=== PATIENT | male | born 1970 | race Caucasian/White ===

== ENCOUNTER 2020-10-19 17:28 | Emergency (ER) | payer BC ==
[2020-10-19] MEDS ORDERED: NA CHLORIDE 0.9% 1,000 ML ONE (18:02)
--- NOTE | 2020-10-19 22:47 | ER ---
Nurse's Notes [facility] Name: Norm Diez Age: 50 yrs Sex: Male : 1970 Arrival Date: 10/19/2020 Time: 17:29 Bed 6 Private MD: Diagnosis: Allergic Reaction Presentation: 10/19 17:35 Chief complaint: EMS states: Sudden onset severe itching on back and hives, followed by hb dizziness and SOB. On scene pt was hypotensive, diaphoretic, BP 60 palp. 20g R hand and 18g RAC. 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 Coronavirus screen: At this time, the client does not indicate any symptoms associated with coronavirus-19. Ebola Screen: No symptoms or risks identified at this time. Onset of symptoms was October 19, 2020. 17:35 Method Of Arrival: EMS: [facility] 17:35 Acuity: MARCO 2 hb 17:39 Initial Sepsis Screen: Does the patient meet any 2 criteria? No. Patient's initial hb sepsis screen is negative. Does the patient have a suspected source of infection? No. Patient's initial sepsis screen is negative. Risk Assessment: Do you want to hurt yourself or someone else? Patient reports no desire to harm self or others. Triage Assessment: 17:39 General: Appears in no apparent distress. Behavior is calm, cooperative. Pain: Denies hb pain. EENT: No deficits noted. No signs and/or symptoms were reported regarding the EENT system. Neuro: Level of Consciousness is awake, alert, obeys commands, Oriented to person, place, time, situation. Cardiovascular: Rhythm is regular. Respiratory: Respiratory effort is even, unlabored, Respiratory pattern is regular, symmetrical. GI: No signs and/or symptoms were reported involving the gastrointestinal system. : No signs and/or symptoms were reported regarding the genitourinary system. Derm: Skin is healthy with good turgor, Skin is clammy, Skin is pale. Musculoskeletal: No signs and/or symptoms reported regarding the musculoskeletal system. Historical: - Allergies: 17:39 No Known Allergies; hb - Immunization history:: Adult Immunizations up to date. - Social history:: Smoking status: Patient denies any tobacco usage or history of. Screenin:41 Abuse screen: Denies threats or abuse. Denies injuries from another. Nutritional hb screening: No deficits noted. Tuberculosis screening: No symptoms or risk factors identified. Fall Risk None identified. Assessment: 17:40 General: see triage . hb 18:26 Reassessment: Patient appears in no apparent distress at this time. Patient and/or hb family updated on plan of care and expected duration. Pain level reassessed. Patient is alert, oriented x 3, equal unlabored respirations, skin warm/dry/pink. 19:15 Reassessment: Patient appears in no apparent distress at this time. Patient and/or wh family updated on plan of care and expected duration. Pain level reassessed. Patient is alert, oriented x 3, equal unlabored respirations, skin warm/dry/pink. Updated on POC need to monitor for 6 hours until 2300 per Provider. 21:24 Reassessment: patient for observation for 6 hours. family informed. mg2 22:58 Reassessment: Patient appears in no apparent distress at this time. Patient and/or wh family updated on plan of care and expected duration. Pain level reassessed. Patient is alert, oriented x 3, equal unlabored respirations, skin warm/dry/pink. Vital Signs: 17:35 BP 118 / 70; Pulse 68; Resp 16; Temp 97.7; Pulse Ox 95% on R/A; Pain 0/10; hb 18:26 BP 118 / 64; Pulse 63; Resp 17; Pulse Ox 99% ; hb 20:15 BP 116 / 75; Pulse 68; Resp 18; Pulse Ox 100% on R/A; mg2 21:25 BP 117 / 72; Pulse 81; Resp 18; Pulse Ox 96% on R/A; wh 22:58 BP 119 / 81; Pulse 82; Resp 18; Pulse Ox 95% on R/A; wh ED Course: 17:29 Patient arrived in ED. ss 17:30 Justo Brock MD is Attending Physician. pkl 17:33 EKG done, by ED staff, reviewed by Douglas DOYLE. sv 17:34 Douglas [place] PA is PHCP. jmm 17:34 Justo Brock MD is Attending Physician. jmm 17:35 Radha Funes, RN is Primary Nurse. hb 17:38 Triage completed. hb 17:38 Arm band placed on. hb 17:41 Patient has correct armband on for positive identification. Bed in low position. Call hb light in reach. Side rails up X 1. quality assurance monitor body on. Pulse ox on. NIBP on. 17:41 Maintain EMS IV. Dressing intact. Good blood return noted. Site clean \T\ dry. Gauge \T\ hb site: 18g RAC, 20g L hand. 22:59 No provider procedures requiring assistance completed. IV discontinued, intact, wh bleeding controlled, No redness/swelling at site. Administered Medications: 17:46 Drug: NS 0.9% 1000 ml Route: IV; Rate: 1 bolus; Site: right antecubital; hb 21:23 Follow up: Response: No adverse reaction; IV Intake: 1000ml mg2 21:23 Not Given (Physician Discretion): Decadron - Dexamethasone 10 mg IVP once mg2 Intake: 21:23 IV: 1000ml; Total: 1000ml. mg2 Outcome: 22:47 Discharge ordered by . noam 23:00 Patient left the ED. wh Signatures: Winsome Noble, RN RN Justo Reid MD MD pkl Mickail, Joel, PA PA jmm Smirch, Shelby, RN RN ss Radha Funes RN RN Theodore James RN RN Sami Ruiz RN RN mg2 Corrections: (The following items were deleted from the chart) 17:41 17:35 Chief complaint: EMS states: Sudden onset severe itching on back and hives, hb followed by dizziness and SOB. On scene pt was hypotensive, diaphoretic, BP 60 palp. 20g R hand and 18g RAC. 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 hb
--- NOTE | 2020-10-19 22:47 | EDPHYS ---
Physician Documentation [facility] Name: Norm Diez Age: 50 yrs Sex: Male : 1970 Arrival Date: 10/19/2020 Time: 17:29 Bed 6 Private MD: ED Physician Justo Brock HPI: 10/19 17:30 This 50 yrs old Male presents to ER via EMS with complaints of Allergic jmm Reaction. 17:30 Onset: The symptoms/episode began/occurred acutely, just prior to arrival. Associated jmm signs and symptoms: Pertinent positives: hives, syncope. Possible causes: The patient has no known obvious cause for the symptoms. At home the patient or guardian has treated the symptoms with nothing. This is a 50 year old male with no known chronic medical conditions that presents to the ED after developing hives. Patient was hypotensive at home. Epinephrine was administered along with steroids. Patient currently has tremors but denies shortness of breath. . Historical: - Allergies: 17:39 No Known Allergies; hb - Immunization history:: Adult Immunizations up to date. - Social history:: Smoking status: Patient denies any tobacco usage or history of. ROS: 17:30 Constitutional: Negative for fever, chills, and weight loss, Cardiovascular: Negative jmm for chest pain, palpitations, and edema, Respiratory: Negative for shortness of breath, cough, wheezing, and pleuritic chest pain. 17:30 Allergy/Immunology: Positive for hives. 17:30 All other systems are negative. Exam: 17:30 Constitutional: This is a well developed, well nourished patient who is awake, alert, jmm and in no acute distress. Head/Face: atraumatic. Eyes: EOMI, no conjunctival erythema appreciated ENT: Moist Mucus Membranes Neck: Trachea midline, Supple Chest/axilla: Normal chest wall appearance and motion. Cardiovascular: Regular rate and rhythm. No edema appreciated Respiratory: Normal respirations, no respiratory distress appreciated Abdomen/GI: Non distended, soft Back: Normal ROM Skin: General appearance color normal MS/ Extremity: Moves all extremities, no obvious deformities appreciated, no edema noted to the lower extremities Neuro: Awake and alert, normal gait Psych: Behavior is normal, Mood is normal, Patient is cooperative and pleasant Vital Signs: 17:35 BP 118 / 70; Pulse 68; Resp 16; Temp 97.7; Pulse Ox 95% on R/A; Pain 0/10; hb 18:26 BP 118 / 64; Pulse 63; Resp 17; Pulse Ox 99% ; hb 20:15 BP 116 / 75; Pulse 68; Resp 18; Pulse Ox 100% on R/A; mg2 21:25 BP 117 / 72; Pulse 81; Resp 18; Pulse Ox 96% on R/A; wh 22:58 BP 119 / 81; Pulse 82; Resp 18; Pulse Ox 95% on R/A; wh MDM: 17:30 Patient medically screened. pkl 22:45 Data reviewed: vital signs, nurses notes. Counseling: I had a detailed discussion with noam the patient and/or guardian regarding: the historical points, exam findings, and any diagnostic results supporting the discharge/admit diagnosis, the need for outpatient follow up, to return to the emergency department if symptoms worsen or persist or if there are any questions or concerns that arise at home. ED course: Patient is alert and non toxic in appearance. Patient advised to follow up with pcp and otherwise given strict return precautions. Patient understood and agrees with the plan of care. . Administered Medications: 17:46 Drug: NS 0.9% 1000 ml Route: IV; Rate: 1 bolus; Site: right antecubital; hb 21:23 Follow up: Response: No adverse reaction; IV Intake: 1000ml mg2 21:23 Not Given (Physician Discretion): Decadron - Dexamethasone 10 mg IVP once mg2 Disposition: 10/19/20 22:47 Discharged to Home. Impression: Allergic Reaction. - Condition is Stable. - Prescriptions for EpiPen 0.3 mg Injection auto- injector - inject 1 pen by INTRAMUSCULAR route as directed Inject into the outer portion of the thigh, through clothing if necessary. Indicated in the emergency treatment of allergic reactions; 1 unit. Prednisone 20 mg Oral Tablet - take 3 tablet by ORAL route once daily for 5 days; 15 tablet. - Medication Reconciliation Form, Thank You Letter, Antibiotic Education, Prescription Opioid Use form. - Follow up: Private Physician; When: 2 - 3 days; Reason: Recheck today's complaints, Continuance of care, Re-evaluation by your physician. Addendum: 10/22/2020 17:33 Co-signature as Attending Physician, Justo Brock MD. matthew dickens Signatures: Brock, Pin, MD Douglas Persaud PA PA jmm Baxter, Heather, RN RN Theodore James RN RN Sami Ruiz RN [facility] [place] Corrections: (The following items were deleted from the chart) 10/19 23:00 22:47 10/19/2020 22:47 Discharged to Home. Impression: Allergic Reaction. Condition is wh Stable. Forms are Medication Reconciliation Form, Thank You Letter, Antibiotic Education, Prescription Opioid Use. Follow up: Private Physician; When: 2 - 3 days; Reason: Recheck today's complaints, Continuance of care, Re-evaluation by your physician. noam
[2020-10-19 23:05] VITALS: TEMP 97.7
[2020-10-19 23:11] VITALS: BP 119/81; O2SAT 95
--- NOTE | 2020-10-20 10:48 | EKG ---
Test Date: 2020-10-19 Test Time: 17:32:23 Flight Crew Scheduler: SV MEASUREMENT RESULTS: Intervals: Rate: 70 CT: 148 QRSD: 94 QT: 438 QTc: 473 [place]: P: 33 CT: 148 QRS: 71 T: 59 INTERPRETIVE STATEMENTS: Normal sinus rhythm Normal ECG No previous ECG available for comparison Electronically Signed On 10-20-20 10:46:37 CDT by Jean-Paul Figueroa
== END 2020-10-19 23:00 | disposition home or self-care (01) ==
LOC: ER 17:28
DX: L50.9 Urticaria, unspecified (principal)
CPT/HCPCS: 93005; 99284; J7030